=== PATIENT | male | born 1980 | race African-American/Black ===

== ENCOUNTER 2021-10-11 | Emergency (ER) | payer BC, OTHER ==
[~2021-10-11] VITALS: Ht 180.3 cm; Wt 99.8 kg
--- NOTE | 2021-10-11 00:50 | NUR ---
PATIENT BIBSELF C/O FEELING DEPRESSED WANTING VOL PSYCH ADMIT. PATIENT IS A/O X 3, RR EVEN AND UNLABORED, NO SOB NOTED. PATIENT TAKEN ER BED 18, WITH SECURITY TO WANDED. PATIENT BELONGINGS TAKEN AND PLACED LOCKER.
--- NOTE | 2021-10-11 00:52 | NUR ---
URINE COLLECTED AND SENT TO LAB
--- NOTE | 2021-10-11 00:52 | NUR ---
COVID SWAB COLLECTED SENT TO LAB
[2021-10-11 01:23] LABS: BASOPHILS # (AUTO) 0.1 K/uL (0.0-0.2); BASOPHILS % (AUTO) 0.9 % (0.0-2.0); EOSINOPHILS % (AUTO) 4.5 % (0.0-6.0); HEMATOCRIT 41 % (39-51); HEMOGLOBIN 13.6 g/dL (13.5-17.5); LYMPHOCYTES # (AUTO) 3.1 K/uL (0.8-4.8); MEAN CORPUSCULAR HGB CONC 34 g/dl (31.0-36.0); MEAN CORPUSCULAR VOLUME 90 fL (80-96); MONOCYTES # (AUTO) 0.8 K/uL (0.1-1.30); MONOCYTES % (AUTO) 9.9 % (2.0-12.0); NEUTROPHILS # (AUTO) 3.8 K/uL (1.8-8.9); NEUTROPHILS % (AUTO) 46.7 % (43.0-81.0); PLATELET COUNT (AUTO) 239 K/uL (150-450)
[2021-10-11 01:25] LABS: BILIRUBIN,URINE NEGATIVE (NEGATIVE); COLOR,URINE YELLOW (YELLOW); LEUKOCYTE ESTERASE ,URINE NEGATIVE (NEGATIVE); NITRITE, URINE NEGATIVE (NEGATIVE); PROTEIN,URINE NEGATIVE (NEGATIVE); UGLUCOSE NEGATIVE (NEGATIVE); UROBILINOGEN,URINE 0.2 EU/dL (0.2)
[2021-10-11 01:41] LABS: CALCIUM, SERUM 8.3 mg/dL (8.5-10.1); CARBON DIOXIDE 30 mmol/L (21-32); CHLORIDE 106 mmol/L (98-107); GLUCOSE 97 mg/dL (74-106); POTASSIUM 3.7 mmol/L (3.5-5.1); SODIUM SERUM 141 mmol/L (136-145); UREA NITROGEN, BLOOD 18 mg/dL (7-18)
[2021-10-11 01:46] LABS: ALANINE AMINOTRANSFERASE 34 U/L (12-78); ALBUMIN 3.6 g/dL (3.4-5.0); ALCOHOL, BLOOD < 3 mg/dL (0-0); ALKALINE PHOSPHATASE 74 U/L (46-116); ASPARTATE AMINOTRANSFERASE 27 U/L (15-37); BILIRUBIN,DIRECT 0.1 mg/dL (0.0-0.2); BILIRUBIN,TOTAL 0.4 mg/dL (0.2-1.0); TOTAL PROTEIN, SERUM 6.7 g/dL (6.4-8.2)
[2021-10-11 01:47] LABS: ACETAMINOPHEN 0 ug/ml (10-30)
--- NOTE | 2021-10-11 04:33 | NUR ---
FACESHEET AND CLINICALS FAXED TO [facility].
--- NOTE | 2021-10-11 07:38 | NUR ---
PER JANEL, ACCEPTED UNDER THE CARE OF DR SULLIVAN, TRANSPORT ETA 2280. NUMBER TO IVE REPORT [phone]
--- NOTE | 2021-10-11 07:44 | NUR ---
REPORT GIVEN TO KENN CABAN FOR STEPHANIA
--- NOTE | 2021-10-11 11:10 | NUR ---
Pt refusing to be transferred to a psychiatric facility states " I would [facility] go to [facility] where I have records at. I do not want to hurt myself/suicidal. Just need my records so I can follow up" Dr Melara made aware
[2021-10-11 11:36] VITALS: BP 119/64
--- NOTE | 2021-10-11 11:36 | NUR ---
Patient discharged to home in stable condition. Written and verbal after care instructions given. Patient verbalizes understanding of instruction.
== END 2021-10-11 11:36 | disposition home or self-care (01) ==
LOC: ER 00:06
DX: F32.A Depression, unspecified (principal); F10.10 Alcohol abuse, uncomplicated; Y90.0 Blood alcohol level of less than 20 mg/100 ml; Z59.00 Homelessness unspecified; Z20.822 Contact with and (suspected) exposure to COVID-19
CPT/HCPCS: 99283; 85025; 80048; 80076; 81003; 36415; 87426; 80143; 80320; 80307; C9803; G0480

== ENCOUNTER 2021-10-12 06:39 | Emergency (ER) | payer BC ==
[~2021-10-12] VITALS: Ht 180.3 cm; Wt 97.5 kg
--- NOTE | 2021-10-12 07:13 | NUR ---
BIBS WANTING VOLUNTARY PSYCH ADMISSION, PT STATED THAT HE HAS BEEN FEELING DEPRESSED AND UNABLE TO SLEEP, DENIES SI, HI. PT BELONGINGS OBTAINED AND PLACED IN A SEPERATE ROOM, CHANGED INTO A HSOPITAL GOWN. WARM BLNKAET PROVIDED FOR COMFORT. AWAITING MD ORDERS.
--- NOTE | 2021-10-12 07:28 | NUR ---
URINE COLLECTED AND SENT
--- NOTE | 2021-10-12 07:31 | NUR ---
COVID TEST COLLECTED AND SENT
[2021-10-12 07:51] LABS: BASOPHILS # (AUTO) 0.1 K/uL (0.0-0.2); BASOPHILS % (AUTO) 0.8 % (0.0-2.0); EOSINOPHILS % (AUTO) 3.2 % (0.0-6.0); HEMATOCRIT 41 % (39-51); HEMOGLOBIN 13.7 g/dL (13.5-17.5); LYMPHOCYTES # (AUTO) 2.9 K/uL (0.8-4.8); LYMPHOCYTES % (AUTO) 38.5 % (20.0-44.0); MEAN CORPUSCULAR HGB CONC 34 g/dl (31.0-36.0); MEAN CORPUSCULAR VOLUME 90 fL (80-96); MONOCYTES # (AUTO) 0.7 K/uL (0.1-1.30); MONOCYTES % (AUTO) 9.5 % (2.0-12.0); NEUTROPHILS # (AUTO) 3.6 K/uL (1.8-8.9); PLATELET COUNT (AUTO) 257 K/uL (150-450); RED BLOOD CELL COUNT(AUTO) 4.53 MIL/uL (4.5-6.0); WHITE BLOOD COUNT (AUTO) 7.6 K/uL (4.3-11.0)
[2021-10-12 08:04] LABS: ALANINE AMINOTRANSFERASE 35 U/L (12-78); ALBUMIN 3.7 g/dL (3.4-5.0); ALCOHOL, BLOOD < 3 mg/dL (0-0); ALKALINE PHOSPHATASE 76 U/L (46-116); ASPARTATE AMINOTRANSFERASE 26 U/L (15-37); BILIRUBIN,DIRECT 0.1 mg/dL (0.0-0.2); BILIRUBIN,TOTAL 0.4 mg/dL (0.2-1.0); CALCIUM, SERUM 8.4 mg/dL (8.5-10.1); CARBON DIOXIDE 32 mmol/L (21-32); CHLORIDE 103 mmol/L (98-107); CREATININE 1.1 mg/dL (0.6-1.3); GLUCOSE 97 mg/dL (74-106); POTASSIUM 3.8 mmol/L (3.5-5.1); SODIUM SERUM 138 mmol/L (136-145); TOTAL PROTEIN, SERUM 7.2 g/dL (6.4-8.2); UREA NITROGEN, BLOOD 24 mg/dL (7-18)
[2021-10-12 08:06] LABS: ACETAMINOPHEN 0 ug/ml (10-30)
[2021-10-12 08:07] LABS: BILIRUBIN,URINE NEGATIVE (NEGATIVE); COLOR,URINE YELLOW (YELLOW); LEUKOCYTE ESTERASE ,URINE NEGATIVE (NEGATIVE); NITRITE, URINE NEGATIVE (NEGATIVE); PROTEIN,URINE NEGATIVE (NEGATIVE); UGLUCOSE NEGATIVE (NEGATIVE); UROBILINOGEN,URINE 0.2 EU/dL (0.2)
--- NOTE | 2021-10-12 08:20 | NUR ---
MEDICALLY CLEARED. FACESHEET AND CLINICALS FAXED OVER TO [facility].
--- NOTE | 2021-10-12 08:24 | NUR ---
BREAKFAST PROVIDED, ASHLEY WELL
[2021-10-12 10:41] VITALS: BP 128/71
--- NOTE | 2021-10-12 11:48 | NUR ---
ADAM followed up with [facility] TEL:[phone] fax:[phone] admission to [facility]. ADAM was notified by Trina mccrary this pt. has been accepted at [facility] under the care of Dr. Fierro and flynn picked up at 12:30pm. ADAM notified Anthony godfrey.
--- NOTE | 2021-10-12 11:49 | NUR ---
ACCEPTED AT [facility] UNDER DR. DARNELL [phone] FOR REPORT.
--- NOTE | 2021-10-12 12:25 | NUR ---
REPORT Lian HOUGH FOR STEPHANIA
== END 2021-10-12 12:33 ==
LOC: ER 06:47
DX: F32.A Depression, unspecified (principal); F25.9 Schizoaffective disorder, unspecified; Z20.822 Contact with and (suspected) exposure to COVID-19; Z72.89 Other problems related to lifestyle; F15.90 Other stimulant use, unspecified, uncomplicated; F12.90 Cannabis use, unspecified, uncomplicated
CPT/HCPCS: 99285; 85025; 80048; 80076; 81003; 36415; 87426; 80143; 80320; 80307; C9803; G0480

== ENCOUNTER 2021-10-16 04:07 | Emergency (ER) | payer BC ==
[~2021-10-16] VITALS: Ht 180.3 cm; Wt 97.5 kg
--- NOTE | 2021-10-16 04:39 | NUR ---
PATIENT BIBSELF C/O WANTING VOL PSYCH ADMIT. PATIENT IS A/O X 4, RR EVEN AND UNLABORED NO SOB NOTED. PATIENT IS AFEBRILE. PATIENT AMBULATES WITH STEADY GAIT. SKIN IS INTACT. PATIENT TO ER BED 18. RN, EMT, SECURITY AT BEDSIDE FOR WANDING. BELONGINGS TAKEN AND PLACED IN LOCKER. WILL CONTINUE TO MONITOR.
--- NOTE | 2021-10-16 04:43 | NUR ---
DIDIERID COLLECTED SENT TO LAB
--- NOTE | 2021-10-16 04:43 | NUR ---
URINE COLLECTED SENT TO LAB
[2021-10-16 04:50] LABS: BASOPHILS # (AUTO) 0.1 K/uL (0.0-0.2); BASOPHILS % (AUTO) 0.7 % (0.0-2.0); EOSINOPHILS % (AUTO) 2.9 % (0.0-6.0); HEMATOCRIT 43 % (39-51); HEMOGLOBIN 14.6 g/dL (13.5-17.5); LYMPHOCYTES # (AUTO) 2.3 K/uL (0.8-4.8); LYMPHOCYTES % (AUTO) 21.9 % (20.0-44.0); MEAN CORPUSCULAR HGB CONC 34 g/dl (31.0-36.0); MEAN CORPUSCULAR VOLUME 91 fL (80-96); NEUTROPHILS # (AUTO) 6.6 K/uL (1.8-8.9); NEUTROPHILS % (AUTO) 64.5 % (43.0-81.0); PLATELET COUNT (AUTO) 265 K/uL (150-450); RED BLOOD CELL COUNT(AUTO) 4.77 MIL/uL (4.5-6.0); WHITE BLOOD COUNT (AUTO) 10.3 K/uL (4.3-11.0)
[2021-10-16 04:55] LABS: BILIRUBIN,URINE SMALL (NEGATIVE); COLOR,URINE YELLOW (YELLOW); LEUKOCYTE ESTERASE ,URINE NEGATIVE (NEGATIVE); NITRITE, URINE NEGATIVE (NEGATIVE); PROTEIN,URINE NEGATIVE (NEGATIVE); UGLUCOSE NEGATIVE (NEGATIVE); UROBILINOGEN,URINE 0.2 EU/dL (0.2)
[2021-10-16 05:04] LABS: ALANINE AMINOTRANSFERASE 35 U/L (12-78); ALBUMIN 4.2 g/dL (3.4-5.0); ALCOHOL, BLOOD < 3 mg/dL (0-0); ALKALINE PHOSPHATASE 85 U/L (46-116); ASPARTATE AMINOTRANSFERASE 23 U/L (15-37); BILIRUBIN,DIRECT 0.1 mg/dL (0.0-0.2); BILIRUBIN,TOTAL 0.5 mg/dL (0.2-1.0); CALCIUM, SERUM 8.5 mg/dL (8.5-10.1); CARBON DIOXIDE 33 mmol/L (21-32); CHLORIDE 101 mmol/L (98-107); GLUCOSE 91 mg/dL (74-106); POTASSIUM 3.2 mmol/L (3.5-5.1); SODIUM SERUM 139 mmol/L (136-145); TOTAL PROTEIN, SERUM 7.7 g/dL (6.4-8.2); UREA NITROGEN, BLOOD 25 mg/dL (7-18)
[2021-10-16 05:06] LABS: ACETAMINOPHEN 0 ug/ml (10-30)
--- NOTE | 2021-10-16 06:51 | NUR ---
CLINICALS FAXED TO [facility]
--- NOTE | 2021-10-16 07:48 | NUR ---
CALLED [facility]. THEY ARE REVIEWING CLINICALS.
--- NOTE | 2021-10-16 09:09 | NUR ---
ACCEPTED AT [facility] UNDER DR. SULLIVAN [phone] FOR REPORT. 1000 ETA FOR TRANSPORT.
--- NOTE | 2021-10-16 09:40 | NUR ---
Mike from . [facility] of here for bead picker. Discharged to psych facility in stable condition
[2021-10-16 10:03] VITALS: BP 132/75
== END 2021-10-16 10:03 ==
LOC: ER 04:09
DX: R45.851 Suicidal ideations (principal); F19.10 Other psychoactive substance abuse, uncomplicated; Z20.822 Contact with and (suspected) exposure to COVID-19; F25.9 Schizoaffective disorder, unspecified
CPT/HCPCS: 99285; 85025; 80048; 80076; 81003; 36415; 87426; 80143; 80320; 80307; C9803; G0480

== ENCOUNTER 2021-12-25 23:26 | Emergency (ER) | payer BC ==
[~2021-12-25] VITALS: Ht 180.3 cm; Wt 95.3 kg
--- NOTE | 2021-12-25 23:37 | NUR ---
CALLED TO HELADIO, NO ANSWER FROM WAITING ROOM
[2021-12-26 01:33] LABS: BILIRUBIN,URINE 1+ (NEGATIVE); COLOR,URINE YELLOW (YELLOW); LEUKOCYTE ESTERASE ,URINE NEGATIVE (NEGATIVE); NITRITE, URINE NEGATIVE (NEGATIVE); PROTEIN,URINE TRACE mg/dl (NEGATIVE); UGLUCOSE NEGATIVE (NEGATIVE); UROBILINOGEN,URINE 0.2 EU/dL (0.2)
--- NOTE | 2021-12-26 01:37 | NUR ---
LICENSED PRACTICAL NURSE AT PT'S BEDSIDE
[2021-12-26 01:43] LABS: BASOPHILS # (AUTO) 0.1 K/uL (0.0-0.2); BASOPHILS % (AUTO) 0.9 % (0.0-2.0); EOSINOPHILS % (AUTO) 2.5 % (0.0-6.0); HEMATOCRIT 40 % (39-51); HEMOGLOBIN 13.3 g/dL (13.5-17.5); LYMPHOCYTES # (AUTO) 2.1 K/uL (0.8-4.8); MEAN CORPUSCULAR HGB CONC 34 g/dl (31.0-36.0); MEAN CORPUSCULAR VOLUME 90 fL (80-96); MONOCYTES # (AUTO) 0.8 K/uL (0.1-1.30); MONOCYTES % (AUTO) 7.5 % (2.0-12.0); NEUTROPHILS # (AUTO) 7.7 K/uL (1.8-8.9); NEUTROPHILS % (AUTO) 70.1 % (43.0-81.0); PLATELET COUNT (AUTO) 285 K/uL (150-450)
[2021-12-26 02:04] LABS: CALCIUM, SERUM 8.8 mg/dL (8.5-10.1); CARBON DIOXIDE 33 mmol/L (21-32); CHLORIDE 101 mmol/L (98-107); GLUCOSE 92 mg/dL (74-106); POTASSIUM 3.6 mmol/L (3.5-5.1); SODIUM SERUM 137 mmol/L (136-145); UREA NITROGEN, BLOOD 22 mg/dL (7-18)
[2021-12-26 02:10] LABS: ACETAMINOPHEN 0 ug/ml (10-30); ALANINE AMINOTRANSFERASE 41 U/L (12-78); ALBUMIN 4.2 g/dL (3.4-5.0); ALCOHOL, BLOOD < 3 mg/dL (0-0); ALKALINE PHOSPHATASE 81 U/L (46-116); ASPARTATE AMINOTRANSFERASE 38 U/L (15-37); BILIRUBIN,DIRECT 0.1 mg/dL (0.0-0.2); BILIRUBIN,TOTAL 0.5 mg/dL (0.2-1.0)
[2021-12-26 07:43] LABS: BACTERIA,URINE Few /HPF (None Seen); RBC,URINE NONE SEEN /HPF (0-2); WBC,URINE 0-2 /HPF (0-3)
--- NOTE | 2021-12-26 09:18 | NUR ---
PT ACCEPTED TO [facility] UNDER DR DARNELL NUMBER FOR REPORT [phone]
--- NOTE | 2021-12-26 12:15 | NUR ---
Patient discharged to home in stable condition. Written and verbal after care instructions given. Patient verbalizes understanding of instruction.
[2021-12-26 12:17] VITALS: BP 142/77
== END 2021-12-26 12:18 | disposition home or self-care (01) ==
LOC: ER 23:42
DX: F25.9 Schizoaffective disorder, unspecified (principal); Z20.822 Contact with and (suspected) exposure to COVID-19; F12.10 Cannabis abuse, uncomplicated
CPT/HCPCS: 36415; 80048-TC; 80076-TC; 81001; 85025-TC; C9803; G0480

== ENCOUNTER 2021-12-27 09:05 | Emergency (ER) | payer BC, OTHER ==
[~2021-12-27] VITALS: Ht 180.3 cm; Wt 98.9 kg
[2021-12-27] MEDS: QUETIAPINE FUMARATE 25 MG TABLET PO STA (09:22)
[2021-12-27] MEDS ORDERED: QUETIAPINE FUMARATE 25 MG TABLET ONE (09:27)
--- NOTE | 2021-12-27 09:29 | NUR ---
Disorganized thoughts, wants to be medically cleared to go to [facility]
[2021-12-27 09:30] VITALS: BP 148/75
[2021-12-27 09:46] LABS: BASOPHILS # (AUTO) 0.1 K/uL (0.0-0.2); BASOPHILS % (AUTO) 0.9 % (0.0-2.0); EOSINOPHILS % (AUTO) 0.6 % (0.0-6.0); HEMATOCRIT 42 % (39-51); HEMOGLOBIN 13.9 g/dL (13.5-17.5); LYMPHOCYTES # (AUTO) 2.8 K/uL (0.8-4.8); LYMPHOCYTES % (AUTO) 22.8 % (20.0-44.0); MEAN CORPUSCULAR HGB CONC 33 g/dl (31.0-36.0); MEAN CORPUSCULAR VOLUME 90 fL (80-96); MONOCYTES # (AUTO) 1.2 K/uL (0.1-1.30); MONOCYTES % (AUTO) 9.5 % (2.0-12.0); NEUTROPHILS % (AUTO) 66.2 % (43.0-81.0); PLATELET COUNT (AUTO) 332 K/uL (150-450); RED BLOOD CELL COUNT(AUTO) 4.65 MIL/uL (4.5-6.0); WHITE BLOOD COUNT (AUTO) 12.1 K/uL (4.3-11.0)
[2021-12-27 09:50] LABS: BILIRUBIN,URINE 1+ (NEGATIVE); COLOR,URINE YELLOW (YELLOW); LEUKOCYTE ESTERASE ,URINE NEGATIVE (NEGATIVE); NITRITE, URINE NEGATIVE (NEGATIVE); PROTEIN,URINE 1+ mg/dl (NEGATIVE); UGLUCOSE NEGATIVE (NEGATIVE)
[2021-12-27 09:55] LABS: CALCIUM, SERUM 9.2 mg/dL (8.5-10.1); CARBON DIOXIDE 32 mmol/L (21-32); CHLORIDE 102 mmol/L (98-107); CREATININE 1.1 mg/dL (0.6-1.3); GLUCOSE 91 mg/dL (74-106); POTASSIUM 3.1 mmol/L (3.5-5.1); SODIUM SERUM 140 mmol/L (136-145); UREA NITROGEN, BLOOD 27 mg/dL (7-18)
[2021-12-27 10:02] LABS: ALANINE AMINOTRANSFERASE 42 U/L (12-78); ALBUMIN 4.4 g/dL (3.4-5.0); ALCOHOL, BLOOD < 3 mg/dL (0-0); ALKALINE PHOSPHATASE 87 U/L (46-116); ASPARTATE AMINOTRANSFERASE 46 U/L (15-37); BILIRUBIN,DIRECT 0.1 mg/dL (0.0-0.2); BILIRUBIN,TOTAL 0.4 mg/dL (0.2-1.0); TOTAL PROTEIN, SERUM 8.5 g/dL (6.4-8.2)
[2021-12-27 10:07] LABS: BACTERIA,URINE Few /HPF (None Seen); WBC,URINE 0-2 /HPF (0-3)
--- NOTE | 2021-12-27 10:52 | NUR ---
FAXED CLINICALS TO [facility].
[2021-12-27 10:56] LABS: ACETAMINOPHEN 0 ug/ml (10-30)
[2021-12-27] MEDS ORDERED: POTASSIUM CHLORIDE 20 MEQ TAB.PRT.SR PO ONE (13:52)
[2021-12-27] MEDS: POTASSIUM CHLORIDE 20 MEQ TAB.PRT.SR PO ONE (13:54)
--- NOTE | 2021-12-27 19:22 | NUR ---
PT IS AGGREVATE BECAUSE HE HAS BEEN HERE "FOR 24 HOURS." PT STATED THAT HE WANTS TO LEAVE, PT DENIES ANY SUICIDAL IDEATION. BELONGING GIVEN BACK TO PT, PT LEFT FACILITY WLAKING.
== END 2021-12-27 19:45 | disposition left against medical advice (07) ==
LOC: ER 09:08
DX: F29 Unspecified psychosis not due to a substance or known physiological condition (principal); F12.19 Cannabis abuse with unspecified cannabis-induced disorder; Z20.822 Contact with and (suspected) exposure to COVID-19; F25.9 Schizoaffective disorder, unspecified
CPT/HCPCS: 36415; 80048-TC; 80076-TC; 81001; 85025-TC; C9803; G0480

== ENCOUNTER 2022-01-09 12:16 | Emergency (ER) | payer BC, OTHER ==
[~2022-01-09] VITALS: Ht 180.3 cm; Wt 99.8 kg
--- NOTE | 2022-01-09 12:37 | NUR ---
URINE COLLECTED AND COVID SWAB DONE AND SENT TO LAB
--- NOTE | 2022-01-09 12:37 | NUR ---
SECURITY CALLED FOR WANDING
--- NOTE | 2022-01-09 13:29 | NUR ---
PHLEB AT BEDSIDE FOR BLOOD DRAW
[2022-01-09 13:38] LABS: BASOPHILS # (AUTO) 0.1 K/uL (0.0-0.2); BASOPHILS % (AUTO) 0.6 % (0.0-2.0); EOSINOPHILS % (AUTO) 0.5 % (0.0-6.0); HEMATOCRIT 42 % (39-51); LYMPHOCYTES # (AUTO) 1.4 K/uL (0.8-4.8); LYMPHOCYTES % (AUTO) 9.2 % (20.0-44.0); MEAN CORPUSCULAR HGB CONC 33 g/dl (31.0-36.0); MEAN CORPUSCULAR VOLUME 90 fL (80-96); MONOCYTES # (AUTO) 1.6 K/uL (0.1-1.30); MONOCYTES % (AUTO) 10.5 % (2.0-12.0); NEUTROPHILS # (AUTO) 11.9 K/uL (1.8-8.9); NEUTROPHILS % (AUTO) 79.2 % (43.0-81.0); PLATELET COUNT (AUTO) 292 K/uL (150-450); RED BLOOD CELL COUNT(AUTO) 4.68 MIL/uL (4.5-6.0)
[2022-01-09 14:02] LABS: ALANINE AMINOTRANSFERASE 31 U/L (12-78); ALBUMIN 3.8 g/dL (3.4-5.0); ALCOHOL, BLOOD < 3 mg/dL (0-0); ALKALINE PHOSPHATASE 78 U/L (46-116); ASPARTATE AMINOTRANSFERASE 20 U/L (15-37); BILIRUBIN,DIRECT 0.1 mg/dL (0.0-0.2); BILIRUBIN,TOTAL 0.4 mg/dL (0.2-1.0); CALCIUM, SERUM 9.3 mg/dL (8.5-10.1); CARBON DIOXIDE 32 mmol/L (21-32); CHLORIDE 107 mmol/L (98-107); CREATININE 1.5 mg/dL (0.6-1.3); GLUCOSE 138 mg/dL (74-106); POTASSIUM 3.9 mmol/L (3.5-5.1); SODIUM SERUM 134 mmol/L (136-145); UREA NITROGEN, BLOOD 25 mg/dL (7-18)
[2022-01-09 14:03] LABS: ACETAMINOPHEN < 10 ug/ml (10-30)
--- NOTE | 2022-01-09 14:47 | NUR ---
URINE SAMPLE COLLECTED AND SENT TO LAB
[2022-01-09 15:07] LABS: BILIRUBIN,URINE 1+ (NEGATIVE); COLOR,URINE YELLOW (YELLOW); LEUKOCYTE ESTERASE ,URINE NEGATIVE (NEGATIVE); NITRITE, URINE NEGATIVE (NEGATIVE); PROTEIN,URINE 2+ mg/dl (NEGATIVE); UGLUCOSE NEGATIVE (NEGATIVE); UROBILINOGEN,URINE 0.2 EU/dL (0.2)
[2022-01-09 15:27] LABS: RBC,URINE 0-2 /HPF (0-2); WBC,URINE 0-2 /HPF (0-3)
[2022-01-09 15:28] LABS: BACTERIA,URINE Few /HPF (None Seen); SQUAMOUS EPITHELIAL CELL,UR Few /HPF (None Seen)
[2022-01-09 15:29] LABS: CALCIUM OXALATE CRYSTALS,UR Few /HPF (None Seen)
[2022-01-09 15:30] LABS: SPERM,URINE Few /HPF (None Seen)
--- NOTE | 2022-01-09 17:32 | NUR ---
FAXED CLINICALS TO [facility].
--- NOTE | 2022-01-09 18:42 | NUR ---
PT ACC[facility]PTED [facility] UNDER DR. DARNELL PLEASE CALL [phone] FOR REPORT.
--- NOTE | 2022-01-09 21:10 | NUR ---
[facility] CALLED FOR TRANSPORT ETA 45-60MINS
--- NOTE | 2022-01-09 22:07 | NUR ---
PT PICKED UP BY [facility] FOR TRANSPORT TO [facility]. REPORT GIVEN TO [facility].
[2022-01-09 22:10] VITALS: BP 140/74
== END 2022-01-09 22:11 ==
LOC: ER 12:24
DX: F23 Brief psychotic disorder (principal); R45.851 Suicidal ideations; F25.9 Schizoaffective disorder, unspecified; E86.0 Dehydration; R82.4 Acetonuria; D72.829 Elevated white blood cell count, unspecified; Z20.822 Contact with and (suspected) exposure to COVID-19
CPT/HCPCS: 99285; 85025; 80048; 80076; 81001; 36415; 87426; 80143; 80320; 80307; C9803; G0480

== ENCOUNTER 2022-01-14 02:47 | Emergency (ER) | payer BC, OTHER ==
[~2022-01-14] VITALS: Ht 188 cm; Wt 88.5 kg
--- NOTE | 2022-01-14 04:46 | NUR ---
PATIENT BIBSELF WANTS VOL PSYCH ADMIT. PATIENT A/O X 3, RR EVEN AND UNLABORED, NO SOB NOTED. PATIENT TAKEN TO ER BED 18, BELONGINGS TAKEN AND PATIENT PLACED IN HOSPITAL GOWN.
[2022-01-14] MEDS ORDERED: OLANZAPINE 5 MG TABLET ONE (04:58)
[2022-01-14] MEDS ORDERED: OLANZAPINE 5 MG TABLET PO ONE (05:00)
[2022-01-14 05:17] LABS: BASOPHILS # (AUTO) 0.1 K/uL (0.0-0.2); BASOPHILS % (AUTO) 0.8 % (0.0-2.0); EOSINOPHILS % (AUTO) 4.7 % (0.0-6.0); HEMATOCRIT 41 % (39-51); HEMOGLOBIN 13.6 g/dL (13.5-17.5); LYMPHOCYTES # (AUTO) 2.1 K/uL (0.8-4.8); LYMPHOCYTES % (AUTO) 28.5 % (20.0-44.0); MEAN CORPUSCULAR HGB CONC 34 g/dl (31.0-36.0); MEAN CORPUSCULAR VOLUME 89 fL (80-96); MONOCYTES # (AUTO) 0.8 K/uL (0.1-1.30); MONOCYTES % (AUTO) 10.6 % (2.0-12.0); NEUTROPHILS # (AUTO) 4.1 K/uL (1.8-8.9); NEUTROPHILS % (AUTO) 55.4 % (43.0-81.0); PLATELET COUNT (AUTO) 291 K/uL (150-450); RED BLOOD CELL COUNT(AUTO) 4.54 MIL/uL (4.5-6.0); WHITE BLOOD COUNT (AUTO) 7.3 K/uL (4.3-11.0)
[2022-01-14 05:20] LABS: BILIRUBIN,URINE 1+ (NEGATIVE); COLOR,URINE YELLOW (YELLOW); LEUKOCYTE ESTERASE ,URINE NEGATIVE (NEGATIVE); PROTEIN,URINE 1+ mg/dl (NEGATIVE); UGLUCOSE NEGATIVE (NEGATIVE)
[2022-01-14 05:23] LABS: NITRITE, URINE NEGATIVE (NEGATIVE)
[2022-01-14 05:24] LABS: BACTERIA,URINE None seen /HPF (None Seen); SQUAMOUS EPITHELIAL CELL,UR None Seen /HPF (None Seen); WBC,URINE 0-2 /HPF (0-3)
[2022-01-14 05:32] LABS: CALCIUM, SERUM 9.4 mg/dL (8.5-10.1); CARBON DIOXIDE 35 mmol/L (21-32); CHLORIDE 98 mmol/L (98-107); GLUCOSE 91 mg/dL (74-106); POTASSIUM 3.5 mmol/L (3.5-5.1); SODIUM SERUM 135 mmol/L (136-145); UREA NITROGEN, BLOOD 20 mg/dL (7-18)
[2022-01-14 05:38] LABS: ALANINE AMINOTRANSFERASE 36 U/L (12-78); ALBUMIN 3.8 g/dL (3.4-5.0); ALCOHOL, BLOOD < 3 mg/dL (0-0); ALKALINE PHOSPHATASE 81 U/L (46-116); ASPARTATE AMINOTRANSFERASE 30 U/L (15-37); BILIRUBIN,DIRECT 0.1 mg/dL (0.0-0.2); BILIRUBIN,TOTAL 0.5 mg/dL (0.2-1.0); TOTAL PROTEIN, SERUM 8.2 g/dL (6.4-8.2)
[2022-01-14 05:41] LABS: ACETAMINOPHEN < 2 ug/ml (10-30)
--- NOTE | 2022-01-14 06:15 | NUR ---
FACESHEET AND CLINICALS FAXED TO [facility].
--- NOTE | 2022-01-14 08:30 | NUR ---
PT UNDER REVIEW BY HOSSEIN PEREIRA AT [facility].
--- NOTE | 2022-01-14 09:03 | NUR ---
PT ACCEPTED TO [facility] UNDER THE CARE OF DR. DARNELL. TRANSPORTATION ETA 930. GIVE REPORT TO MYRNA [phone].
[2022-01-14 09:36] VITALS: BP 145/80
--- NOTE | 2022-01-14 09:36 | NUR ---
METAL CNC OPERATOR BY [facility]SP[facility]. STABLE CONDITION.
== END 2022-01-14 09:37 ==
LOC: ER 02:48
DX: R45.851 Suicidal ideations (principal); F12.10 Cannabis abuse, uncomplicated; Z20.822 Contact with and (suspected) exposure to COVID-19; F25.9 Schizoaffective disorder, unspecified
CPT/HCPCS: 99285; 85025; 80048; 80076; 81001; 36415; 87426; 80143; 80320; 80307; C9803; G0480

== ENCOUNTER 2022-01-27 05:05 | Emergency (ER) | payer BC, OTHER ==
[~2022-01-27] VITALS: Ht 180.3 cm; Wt 95.3 kg
--- NOTE | 2022-01-27 05:50 | NUR ---
called for triage. no answer
--- NOTE | 2022-01-27 07:00 | NUR ---
PRESENTED TO THE ER FOR C/O DEPRESSION, PTSD AND MENTAL BREAK DOWN. REQUESTING VOLUNTARY PSYCH ADMISSION TO [facility]. PT AMBULATORY WITH STEADY GAITS TO THE BATHROOM. URINE SAMPLE OBTAINED. COVID SWAB DONE. BELOGINGS WERE TAKEN AWAY AND PT WAS PLACED ON SI PRECAUTION. VSS.
--- NOTE | 2022-01-27 07:38 | NUR ---
COVID SPECIMEN ALREADY COLLECTED AND RECEIVED BY LAB
[2022-01-27 07:58] LABS: BILIRUBIN,URINE NEGATIVE (NEGATIVE); COLOR,URINE YELLOW (YELLOW); LEUKOCYTE ESTERASE ,URINE NEGATIVE (NEGATIVE); NITRITE, URINE NEGATIVE (NEGATIVE); PH,URINE 6.5 (5.0-8.0); PROTEIN,URINE NEGATIVE (NEGATIVE); UGLUCOSE NEGATIVE (NEGATIVE); UROBILINOGEN,URINE 0.2 EU/dL (0.2)
[2022-01-27 08:06] LABS: BASOPHILS # (AUTO) 0.1 K/uL (0.0-0.2); BASOPHILS % (AUTO) 0.9 % (0.0-2.0); CALCIUM, SERUM 8.9 mg/dL (8.5-10.1); CARBON DIOXIDE 29 mmol/L (21-32); CHLORIDE 102 mmol/L (98-107); CREATININE 0.9 mg/dL (0.6-1.3); GLUCOSE 101 mg/dL (74-106); HEMATOCRIT 42 % (39-51); HEMOGLOBIN 13.7 g/dL (13.5-17.5); LYMPHOCYTES # (AUTO) 2.4 K/uL (0.8-4.8); LYMPHOCYTES % (AUTO) 26.9 % (20.0-44.0); MEAN CORPUSCULAR HGB CONC 33 g/dl (31.0-36.0); MEAN CORPUSCULAR VOLUME 92 fL (80-96); MONOCYTES % (AUTO) 10.8 % (2.0-12.0); NEUTROPHILS # (AUTO) 5.2 K/uL (1.8-8.9); NEUTROPHILS % (AUTO) 58.4 % (43.0-81.0); PLATELET COUNT (AUTO) 297 K/uL (150-450); POTASSIUM 3.8 mmol/L (3.5-5.1); RED BLOOD CELL COUNT(AUTO) 4.54 MIL/uL (4.5-6.0); SODIUM SERUM 138 mmol/L (136-145); UREA NITROGEN, BLOOD 20 mg/dL (7-18)
[2022-01-27 08:13] LABS: ACETAMINOPHEN 0 ug/ml (10-30); ALANINE AMINOTRANSFERASE 26 U/L (12-78); ALBUMIN 3.9 g/dL (3.4-5.0); ALCOHOL, BLOOD < 3 mg/dL (0-0); ALKALINE PHOSPHATASE 78 U/L (46-116); ASPARTATE AMINOTRANSFERASE 25 U/L (15-37); BILIRUBIN,DIRECT 0.1 mg/dL (0.0-0.2); BILIRUBIN,TOTAL 0.4 mg/dL (0.2-1.0); TOTAL PROTEIN, SERUM 7.6 g/dL (6.4-8.2)
--- NOTE | 2022-01-27 09:45 | NUR ---
FAXED CLINICALS TO [facility].
--- NOTE | 2022-01-27 10:00 | NUR ---
Financial Accountant Consult SW faxed clinicals to [facility] TEL:[phone] fax:[phone] for for voluntary psychiatric treatment at [facility] [[facility] [place] [address] FAX:[phone]].
--- NOTE | 2022-01-27 11:15 | NUR ---
REFAXED CLINICALS TO [facility].
--- NOTE | 2022-01-27 13:56 | NUR ---
per roberto, clinically-cleared but needs auth for insurance; will call back when authorized
--- NOTE | 2022-01-27 14:17 | NUR ---
CALLED [facility] [phone] AWAITING AUTH FOR INSURANCE & WILL CALL US BACK PER EUGENIA.
--- NOTE | 2022-01-27 14:36 | NUR ---
PT ACCEPTED AT [facility] UNDER DR. DARNELL NUMBER FOR REPORT: [phone] ETA 1500
--- NOTE | 2022-01-27 14:47 | NUR ---
REPORT GIVEN TO [facility] CHARGE NURSE. PT GOING TO UNIT 2.
--- NOTE | 2022-01-27 15:19 | NUR ---
Patient discharged to [facility] in stable condition accompanied by transporter. Written and verbal after care instructions given. Patient verbalizes understanding of instruction.
[2022-01-27 15:20] VITALS: BP 137/85
== END 2022-01-27 15:21 ==
LOC: ER 05:05
DX: R45.851 Suicidal ideations (principal); F32.A Depression, unspecified; Z20.822 Contact with and (suspected) exposure to COVID-19; Z59.00 Homelessness unspecified; F25.9 Schizoaffective disorder, unspecified; F43.10 Post-traumatic stress disorder, unspecified; R03.0 Elevated blood-pressure reading, without diagnosis of hypertension; F41.9 Anxiety disorder, unspecified
CPT/HCPCS: 99285; 85025; 80048; 80076; 81003; 36415; 87426; 80143; 80320; 80307; C9803; G0480

== ENCOUNTER 2022-02-01 06:29 | Emergency (ER) | payer BC, OTHER ==
--- NOTE | 2022-02-01 06:32 | NUR ---
PATIENT CALLED TO TRIAGE, NOT IN WAITING ROOM,
== END 2022-02-01 06:33 | disposition left against medical advice (07) ==
LOC: ER 06:29
DX: Z53.21 Procedure and treatment not carried out due to patient leaving prior to being seen by health care provider (principal)

== ENCOUNTER 2022-02-05 04:37 | Emergency (ER) | payer BC, OTHER ==
[~2022-02-05] VITALS: Ht 180.3 cm; Wt 95.3 kg
--- NOTE | 2022-02-05 06:35 | NUR ---
DR. THOMAS MARTINEZ WITH PT FOR EVAL
[2022-02-05 06:39] VITALS: BP 148/75
--- NOTE | 2022-02-05 06:39 | NUR ---
BIBS FOR C/O PTSD -SI/HI. A/OX 4. TOLERATING R/A WELL WITH NO RESP DISTRESS. RR EVEN AND NON LABORED. AMBULATORY WITH STEADY GAIT. SAFETY MEASURES IN PLACE.
--- NOTE | 2022-02-05 06:43 | NUR ---
PATIENT WAS D/C'D IN STABLE CONDITION.. PT DID NOT WANT TO WAIT FOR HIS DISCHARGE INSTUCTIONS
== END 2022-02-05 07:05 | disposition home or self-care (01) ==
LOC: ER 04:39
DX: F43.10 Post-traumatic stress disorder, unspecified (principal); F20.9 Schizophrenia, unspecified; F17.200 Nicotine dependence, unspecified, uncomplicated; Z59.00 Homelessness unspecified; X58.XXXA Exposure to other specified factors, initial encounter; Y93.89 Activity, other specified; Y92.89 Other specified places as the place of occurrence of the external cause; Y99.8 Other external cause status

== ENCOUNTER 2022-02-07 18:39 | Emergency (ER) | payer BC, OTHER ==
[~2022-02-07] VITALS: Ht 180.3 cm; Wt 88.5 kg
[2022-02-07 20:24] LABS: BASOPHILS # (AUTO) 0.1 K/uL (0.0-0.2); EOSINOPHILS % (AUTO) 4.2 % (0.0-6.0); HEMATOCRIT 44 % (39-51); HEMOGLOBIN 14.2 g/dL (13.5-17.5); LYMPHOCYTES # (AUTO) 3.2 K/uL (0.8-4.8); LYMPHOCYTES % (AUTO) 34.5 % (20.0-44.0); MEAN CORPUSCULAR HGB CONC 33 g/dl (31.0-36.0); MEAN CORPUSCULAR VOLUME 91 fL (80-96); MONOCYTES # (AUTO) 0.9 K/uL (0.1-1.30); MONOCYTES % (AUTO) 9.4 % (2.0-12.0); NEUTROPHILS # (AUTO) 4.7 K/uL (1.8-8.9); NEUTROPHILS % (AUTO) 50.9 % (43.0-81.0); PLATELET COUNT (AUTO) 292 K/uL (150-450); RED BLOOD CELL COUNT(AUTO) 4.81 MIL/uL (4.5-6.0); WHITE BLOOD COUNT (AUTO) 9.2 K/uL (4.3-11.0)
[2022-02-07 20:42] LABS: ALANINE AMINOTRANSFERASE 27 U/L (12-78); ALCOHOL, BLOOD < 3 mg/dL (0-0); ALKALINE PHOSPHATASE 80 U/L (46-116); ASPARTATE AMINOTRANSFERASE 23 U/L (15-37); BILIRUBIN,DIRECT 0.1 mg/dL (0.0-0.2); BILIRUBIN,TOTAL 0.4 mg/dL (0.2-1.0); CALCIUM, SERUM 8.5 mg/dL (8.5-10.1); CARBON DIOXIDE 31 mmol/L (21-32); CHLORIDE 102 mmol/L (98-107); GLUCOSE 112 mg/dL (74-106); POTASSIUM 3.6 mmol/L (3.5-5.1); SODIUM SERUM 137 mmol/L (136-145); TOTAL PROTEIN, SERUM 7.6 g/dL (6.4-8.2); UREA NITROGEN, BLOOD 20 mg/dL (7-18)
[2022-02-07 20:48] LABS: ACETAMINOPHEN 0 ug/ml (10-30)
--- NOTE | 2022-02-07 20:55 | NUR ---
BIBS FOR VOLUNTARY ADMISSION TO [facility]. DENIES ANY SI OR HI. PT IS ALERT AND ORIENTED. RR EVEN AND NONLABORED. BELONGINGS REMOVED AND AND SECURED IN LOCKER. CONNECTED TO MONITOR. SITTER WITHIN SIGHT. AWAITING MD ALFARO
--- NOTE | 2022-02-07 20:57 | NUR ---
COVID SWAB OBTAINED
[2022-02-07 21:37] LABS: BILIRUBIN,URINE 1+ (NEGATIVE); COLOR,URINE YELLOW (YELLOW); LEUKOCYTE ESTERASE ,URINE NEGATIVE (NEGATIVE); NITRITE, URINE NEGATIVE (NEGATIVE); PROTEIN,URINE NEGATIVE (NEGATIVE); UGLUCOSE NEGATIVE (NEGATIVE)
[2022-02-07 21:38] LABS: BACTERIA,URINE None seen /HPF (None Seen); SQUAMOUS EPITHELIAL CELL,UR 0-2 /HPF (None Seen); WBC,URINE 0-2 /HPF (0-3)
[2022-02-07 21:39] LABS: RBC,URINE 0-2 /HPF (0-2)
--- NOTE | 2022-02-08 00:15 | NUR ---
faxed clinicals to [facility]
--- NOTE | 2022-02-08 06:12 | NUR ---
CALLED [facility] TO F/U. PER CLINTON SMITHITING FOR ADMITTING TO APPLY FOR AUTHORIZATION FROM INSURANCE IN AM.
--- NOTE | 2022-02-08 07:30 | NUR ---
BREAKFAST TRAY PROVIDED TO PT, ASHLEY WELL.
--- NOTE | 2022-02-08 09:01 | NUR ---
SPOKE WITH KRISTIE AT [facility], STILL AWAITING AUTH FOR ADMISSION.
--- NOTE | 2022-02-08 10:21 | NUR ---
[facility] ACCEPTING MD: DR MONIQUE # FOR REPORT: [phone] TRANSPO ETA 20-30min
[2022-02-08 10:32] VITALS: BP 137/69
--- NOTE | 2022-02-08 10:33 | NUR ---
CALLED FOR REPORT. NO ANSWER, LEFT VM
--- NOTE | 2022-02-08 10:40 | NUR ---
PROVIDED W BREAKFAST TRAY
--- NOTE | 2022-02-08 10:55 | NUR ---
PATIENT PICKED UP BY [facility] TRANSPORT PERSON IN STABLE CONDITION. ALL BELONGINGS RETURNED TO PATIENT. CLINICALS PROVIDED TO BE SUBMITTED TO [facility].
== END 2022-02-08 10:59 ==
LOC: ER 18:39
DX: F32.A Depression, unspecified (principal); F43.10 Post-traumatic stress disorder, unspecified; Z59.02 Unsheltered homelessness; Z20.822 Contact with and (suspected) exposure to COVID-19; Z91.14 Patient's other noncompliance with medication regimen; F25.9 Schizoaffective disorder, unspecified; R82.5 Elevated urine levels of drugs, medicaments and biological substances
CPT/HCPCS: 99284; 85025; 80048; 80076; 81001; 36415; 87426; 80143; 80320; 80307; C9803; G0480

== ENCOUNTER 2022-02-22 21:47 | Emergency (ER) | payer MEDICARE, OTHER ==
[~2022-02-22] VITALS: Ht 180.3 cm; Wt 95.7 kg
--- NOTE | 2022-02-22 22:25 | NUR ---
BIBS FOR C/O MENTAL BREAK DOWN REQUESTING VOLUNTARY PSYCH ADMISSION DENIED SI/HI. PT A/OX3. TOLERATING R/A WELL WITH NO RESP DISRESS. PT AMBULATORY WITH STEADY GAIT. PT CHANGED IN GOWN, BELONGINGS COLLECTED IN LOCKER AND WANDED BY SECURITY. SAFETY MEASURES IN PLACE.
--- NOTE | 2022-02-23 | NUR ---
URINE COLLECTED AND SENT TO LAB
--- NOTE | 2022-02-23 00:01 | NUR ---
STREET DEPARTMENT DISPATCHER AT PT'S BEDSIDE
[2022-02-23 00:15] LABS: BASOPHILS % (AUTO) 0.5 % (0.0-2.0); EOSINOPHILS % (AUTO) 3.3 % (0.0-6.0); HEMATOCRIT 39 % (39-51); HEMOGLOBIN 12.6 g/dL (13.5-17.5); LYMPHOCYTES # (AUTO) 2.8 K/uL (0.8-4.8); LYMPHOCYTES % (AUTO) 29.8 % (20.0-44.0); MEAN CORPUSCULAR HGB CONC 33 g/dl (31.0-36.0); MEAN CORPUSCULAR VOLUME 91 fL (80-96); MONOCYTES # (AUTO) 0.9 K/uL (0.1-1.30); MONOCYTES % (AUTO) 9.6 % (2.0-12.0); NEUTROPHILS # (AUTO) 5.3 K/uL (1.8-8.9); NEUTROPHILS % (AUTO) 56.8 % (43.0-81.0); PLATELET COUNT (AUTO) 250 K/uL (150-450); RED BLOOD CELL COUNT(AUTO) 4.25 MIL/uL (4.5-6.0); WHITE BLOOD COUNT (AUTO) 9.3 K/uL (4.3-11.0)
[2022-02-23 00:22] LABS: BILIRUBIN,URINE NEGATIVE (NEGATIVE); COLOR,URINE YELLOW (YELLOW); LEUKOCYTE ESTERASE ,URINE NEGATIVE (NEGATIVE); NITRITE, URINE NEGATIVE (NEGATIVE); PH,URINE 6.5 (5.0-8.0); PROTEIN,URINE TRACE mg/dl (NEGATIVE); UGLUCOSE NEGATIVE (NEGATIVE)
[2022-02-23 00:24] LABS: CALCIUM, SERUM 8.1 mg/dL (8.5-10.1); CARBON DIOXIDE 29 mmol/L (21-32); CHLORIDE 104 mmol/L (98-107); GLUCOSE 105 mg/dL (74-106); POTASSIUM 3.2 mmol/L (3.5-5.1); SODIUM SERUM 140 mmol/L (136-145); UREA NITROGEN, BLOOD 23 mg/dL (7-18)
[2022-02-23 00:27] LABS: BACTERIA,URINE None seen /HPF (None Seen); RBC,URINE 0-2 /HPF (0-2); SQUAMOUS EPITHELIAL CELL,UR Rare /HPF (None Seen); WBC,URINE 0-2 /HPF (0-3)
[2022-02-23 00:31] LABS: ALANINE AMINOTRANSFERASE 22 U/L (12-78); ALBUMIN 3.5 g/dL (3.4-5.0); ALCOHOL, BLOOD < 3 mg/dL (0-0); ALKALINE PHOSPHATASE 81 U/L (46-116); ASPARTATE AMINOTRANSFERASE 23 U/L (15-37); BILIRUBIN,DIRECT 0.1 mg/dL (0.0-0.2); BILIRUBIN,TOTAL 0.2 mg/dL (0.2-1.0); TOTAL PROTEIN, SERUM 6.8 g/dL (6.4-8.2)
[2022-02-23 00:34] LABS: ACETAMINOPHEN 0 ug/ml (10-30)
--- NOTE | 2022-02-23 01:09 | NUR ---
FACESHEET AND CLINICALS FAXED TO [facility].
--- NOTE | 2022-02-23 04:00 | NUR ---
PER [facility] PT ACCEPTED [facility] SULLIVAN CALL FOR REPORT [phone]
--- NOTE | 2022-02-23 04:03 | NUR ---
REPORT GIVEN TO INTERMODAL CUSTOMER SERVICE AUDIE
--- NOTE | 2022-02-23 05:05 | NUR ---
[facility] ETA TO [facility] IS 1100 AM
--- NOTE | 2022-02-23 08:16 | NUR ---
PT STATED THAT HE WANTS TO LEAVE THE HOSPITAL AND REFUSED TO GO TO [facility]. PT A/O X3 AND ABLE TO MAKE NEEDS KNOWN, CURRENTLY NOT ON A PSYCH HOLD, DENIES SI/HI AT THIS TIME. DR. CLINE MADE AWARE.
[2022-02-23 08:26] VITALS: BP 135/70
== END 2022-02-23 08:33 | disposition home or self-care (01) ==
LOC: ER 21:54
DX: F32.A Depression, unspecified (principal); Z59.00 Homelessness unspecified; F25.9 Schizoaffective disorder, unspecified; F43.10 Post-traumatic stress disorder, unspecified; Z20.822 Contact with and (suspected) exposure to COVID-19; I10 Essential (primary) hypertension
CPT/HCPCS: 36415; 80048-TC; 80076-TC; 81001; 85025-TC; C9803; G0480

== ENCOUNTER 2022-02-24 21:05 | Emergency (ER) | payer MEDICARE, OTHER ==
[~2022-02-24] VITALS: Ht 180.3 cm; Wt 95.7 kg
--- NOTE | 2022-02-24 22:03 | NUR ---
JIA. TO ER BED 18. CAME IN [facility] MEDICAL CLEARANCE FOR VOLUTARY ADMISSION TO [facility] FOR FEELING DISTRESS BECUASE OF HIS PTSD. PT DENIES SUICIDAL NOR HOMICIDAL IDEATION. WAS AT THE BEDSIDE FOR EVAL. PT WAS PLACED IN GOWN AND BELONGINS TO LOCKER FOR SAFETY PRECAUTION.
--- NOTE | 2022-02-24 22:04 | NUR ---
URINE AND COVID SWAB COLLECTED AND SENT TO LAB
[2022-02-24 22:19] LABS: BASOPHILS # (AUTO) 0.1 K/uL (0.0-0.2); BASOPHILS % (AUTO) 0.6 % (0.0-2.0); EOSINOPHILS % (AUTO) 4.8 % (0.0-6.0); HEMATOCRIT 40 % (39-51); HEMOGLOBIN 13.1 g/dL (13.5-17.5); LYMPHOCYTES # (AUTO) 2.7 K/uL (0.8-4.8); LYMPHOCYTES % (AUTO) 33.2 % (20.0-44.0); MEAN CORPUSCULAR HGB CONC 33 g/dl (31.0-36.0); MEAN CORPUSCULAR VOLUME 90 fL (80-96); MONOCYTES # (AUTO) 0.7 K/uL (0.1-1.30); MONOCYTES % (AUTO) 8.8 % (2.0-12.0); NEUTROPHILS # (AUTO) 4.3 K/uL (1.8-8.9); NEUTROPHILS % (AUTO) 52.6 % (43.0-81.0); PLATELET COUNT (AUTO) 263 K/uL (150-450); RED BLOOD CELL COUNT(AUTO) 4.44 MIL/uL (4.5-6.0); WHITE BLOOD COUNT (AUTO) 8.2 K/uL (4.3-11.0)
[2022-02-24 23:01] LABS: CALCIUM, SERUM 8.5 mg/dL (8.5-10.1); CARBON DIOXIDE 30 mmol/L (21-32); CHLORIDE 103 mmol/L (98-107); CREATININE 0.9 mg/dL (0.6-1.3); GLUCOSE 104 mg/dL (74-106); POTASSIUM 3.5 mmol/L (3.5-5.1); SODIUM SERUM 136 mmol/L (136-145); UREA NITROGEN, BLOOD 17 mg/dL (7-18)
[2022-02-24 23:08] LABS: BILIRUBIN,URINE NEGATIVE (NEGATIVE); COLOR,URINE YELLOW (YELLOW); LEUKOCYTE ESTERASE ,URINE NEGATIVE (NEGATIVE); NITRITE, URINE NEGATIVE (NEGATIVE); PH,URINE 6.5 (5.0-8.0); PROTEIN,URINE NEGATIVE (NEGATIVE); UGLUCOSE NEGATIVE (NEGATIVE); UROBILINOGEN,URINE 0.2 EU/dL (0.2)
[2022-02-24 23:15] LABS: ALANINE AMINOTRANSFERASE 23 U/L (12-78); ALBUMIN 3.6 g/dL (3.4-5.0); ALCOHOL, BLOOD < 3 mg/dL (0-0); ALKALINE PHOSPHATASE 71 U/L (46-116); ASPARTATE AMINOTRANSFERASE 25 U/L (15-37); BILIRUBIN,DIRECT 0.1 mg/dL (0.0-0.2); BILIRUBIN,TOTAL 0.3 mg/dL (0.2-1.0)
[2022-02-24 23:50] LABS: ACETAMINOPHEN < 10 ug/ml (10-30)
--- NOTE | 2022-02-25 08:45 | NUR ---
FAXED CLINICALS TO [facility].
--- NOTE | 2022-02-25 09:21 | NUR ---
Accepted to: [facility] [place] [facility] Accepted by: Nagi Amaya Report to: [phone] Transport to be Arranged ETA [id number]
--- NOTE | 2022-02-25 09:25 | NUR ---
[facility] CALLED FOR TRANSPORT ASKED FOR ETA OF [phone]
--- NOTE | 2022-02-25 10:04 | NUR ---
CALLED ADAM HUNG LEFT VM
--- NOTE | 2022-02-25 11:45 | NUR ---
Patient discharged to [facility] in stable condition accompanied by transporter. Written and verbal after care instructions given. Patient verbalizes understanding of instruction.
--- NOTE | 2022-02-25 11:49 | NUR ---
SS note: Pt. requested to speak to SW about PTSD treatment programs. SW provided pt. mental heatlh resources and homeless resources and recommended that pt. request to be referred to PTSD treatment programs when he arrives at [facility] for voluntary psych tx. as they can assist him with that. Pt. was agreeable to plan and stated he would speak to CM to request this upon arrival. Noted SW provided the following referrals: Mental Health resources provided: [facility] [address] [place], [place] [address] ; [facility] [address] [facility] [address], [place], [place] [id number] ; [facility] [address] [facility] [place], [place] [id number] ; [facility] [address] [place], [place] [address] Healthcare Clinics: [facility] [address] [facility], [address] [place]. [place] ; [facility] [address] [facility] [address] [place] [address]; [facility] [address] [place] [address] [phone] Counseling--Outpatient [facility] [address] [facility] [address] [facility], [address] [place], [place] [address] (Specializes in in-depth psychotherapy for emotional distress: anxiety, depression, interpersonal conflicts, life transitions, childhood abuse) [facility] [address] [place], [place] [phone] (Assist with solving problem marital difficulties, separation & divorce, aging parents, & grief, chronic & terminal illness) [facility] [address] [place] [address] (Deal with loss & grief, anxiety, marital difficulties) Homebound/Mental Health Services [address] [facility], [address] [place], [place] [address] (Provide in-home mental services to people who are incapable of leaving their homes) [facility] Elder[facility] Senior Service[facility] [address] [place] [address] [facility] [address] [place] [address] PSYCHIATRIC OUTPATIENT SERVICES [facility] Partial Hospitalization and Intensive Outpatient Program (Managed Care and [place] Only)[address] veWellstar [facility] [phone] [facility] Partial Hospitalization and Outpatient [id number] [place], [place] [phone] [facility] Center [id number] [facility] [address] [place], [place] [phone] [facility] Partial Hospitalization and Outpatient [id number] EmeliCitizens Medical Center ShivamRIG[place], [phone] Year-round shelters: [facility] [address] [place], [place] [address] ; [facility] [address] [place] [address]; [facility] [id number] [facility] [id number] Hygiene: [facility]: [address] jean claudeSaint John'S [facility] ; [facility] [address] [facility] ; [facility] [address] [facility] [place] . Food Resources: [place] [employer] [facility] at [facility]- [address] [place]; Meet Each Need with Dignity ([facility]) [address] [facility] Hospital[facility] [place]; [facility] Food [facility] [address] [facility]; [facility] [address] [facility]. Substance Abuse resources provided included: [facility] Substance Abuse Self-Helpline (SASH) ; [facility]HELP [address] [facility]. [place] [address] ; [facility] [address] [place] [address] ; [facility] Rehabilitation Program [address] [facility] [place] [address] ; [facility] [address] [facility] [id number] ; [facility] [address] Langley [facility] [phone] ; [facility] [address] [facility] [phone] ; [facility] Substance Abuse Helpline(SAS)[facility] ; [facility] ; [facility]; Luisana [facility] [place]; [facility] [place]; I-ADARP [facility]; [facility] [place]; [facility] [place]; [facility]; [facility] [employer] [place]; Alcoholics Anonymous -SFV; Xh-Noir-Ducvkzs ; Marijuana Anonymous -SFV; Narcotics Anonymous www.na.org;
--- NOTE | 2022-02-25 11:50 | NUR ---
all belongings returned to pt
[2022-02-25 12:22] VITALS: BP 125/80
== END 2022-02-25 12:23 ==
LOC: ER 21:07
DX: F43.10 Post-traumatic stress disorder, unspecified (principal); X58.XXXA Exposure to other specified factors, initial encounter; Y92.89 Other specified places as the place of occurrence of the external cause; F32.A Depression, unspecified; Z59.00 Homelessness unspecified; Z20.822 Contact with and (suspected) exposure to COVID-19; F19.10 Other psychoactive substance abuse, uncomplicated; Z91.14 Patient's other noncompliance with medication regimen; F25.9 Schizoaffective disorder, unspecified; I10 Essential (primary) hypertension
CPT/HCPCS: 36415; 80048-TC; 80076-TC; 85025-TC; C9803; G0480

== ENCOUNTER 2022-03-05 06:53 | Emergency (ER) | payer MEDICARE, OTHER ==
--- NOTE | 2022-03-05 07:19 | NUR ---
CALLED TO TRIAGE,NO ANSWER
--- NOTE | 2022-03-05 07:45 | NUR ---
CALLED TO TRIAGE,NO ANSWER
--- NOTE | 2022-03-05 08:00 | NUR ---
CALLED TO TRIAGE,NO ANSWER
== END 2022-03-05 08:01 | disposition left against medical advice (07) ==
LOC: ER 06:56
DX: Z53.21 Procedure and treatment not carried out due to patient leaving prior to being seen by health care provider (principal)

== ENCOUNTER 2022-03-05 22:22 | Emergency (ER) | payer MEDICARE, OTHER ==
--- NOTE | 2022-03-06 00:14 | NUR ---
CALLED TO TRIAGE NO RESPONSE
--- NOTE | 2022-03-06 00:37 | NUR ---
CALLED TO TRIAGE NO RESPONSE
== END 2022-03-06 01:00 | disposition left against medical advice (07) ==
LOC: ER 22:45
DX: Z53.21 Procedure and treatment not carried out due to patient leaving prior to being seen by health care provider (principal)

== ENCOUNTER 2022-03-06 02:41 | Emergency (ER) | payer MEDICARE, OTHER ==
--- NOTE | 2022-03-06 04:17 | NUR ---
CALLED TO BE TRIAGED; NO RESPONSE
--- NOTE | 2022-03-06 04:37 | NUR ---
CALLED TO BE TRIAGED; NO RESPONSE
--- NOTE | 2022-03-06 05:19 | NUR ---
CALLED TO BE TRIAGED; NO RESPONSE
--- NOTE | 2022-03-06 05:20 | NUR ---
Patient left without being triaged. Dr Neil ER Physician aware.
== END 2022-03-06 05:20 | disposition left against medical advice (07) ==
LOC: ER 02:48
DX: Z53.21 Procedure and treatment not carried out due to patient leaving prior to being seen by health care provider (principal)

== ENCOUNTER 2022-03-07 04:44 | Emergency (ER) | payer MEDICARE, OTHER ==
[~2022-03-07] VITALS: Ht 175.3 cm; Wt 79.4 kg
--- NOTE | 2022-03-07 05:34 | NUR ---
COVID SWAB DONE AND SENT TO LAB
--- NOTE | 2022-03-07 05:34 | NUR ---
BELONGINGS TAKEN AND PLACED IN LOCKER.
--- NOTE | 2022-03-07 05:34 | NUR ---
URINE COLLECTED AND SENT TO LAB
[2022-03-07 06:40] LABS: BASOPHILS % (AUTO) 0.7 % (0.0-2.0); EOSINOPHILS % (AUTO) 3.4 % (0.0-6.0); HEMATOCRIT 41 % (39-51); HEMOGLOBIN 13.5 g/dL (13.5-17.5); LYMPHOCYTES % (AUTO) 26.9 % (20.0-44.0); MEAN CORPUSCULAR HGB CONC 33 g/dl (31.0-36.0); MEAN CORPUSCULAR VOLUME 90 fL (80-96); MONOCYTES # (AUTO) 0.7 K/uL (0.1-1.30); MONOCYTES % (AUTO) 9.6 % (2.0-12.0); NEUTROPHILS # (AUTO) 4.5 K/uL (1.8-8.9); NEUTROPHILS % (AUTO) 59.4 % (43.0-81.0); PLATELET COUNT (AUTO) 297 K/uL (150-450); WHITE BLOOD COUNT (AUTO) 7.6 K/uL (4.3-11.0)
[2022-03-07 06:53] LABS: BILIRUBIN,URINE NEGATIVE (NEGATIVE); COLOR,URINE YELLOW (YELLOW); LEUKOCYTE ESTERASE ,URINE NEGATIVE (NEGATIVE); NITRITE, URINE NEGATIVE (NEGATIVE); PH,URINE 6.5 (5.0-8.0); PROTEIN,URINE NEGATIVE (NEGATIVE); UGLUCOSE NEGATIVE (NEGATIVE)
[2022-03-07 06:58] LABS: ALANINE AMINOTRANSFERASE 23 U/L (12-78); ALBUMIN 3.7 g/dL (3.4-5.0); ALCOHOL, BLOOD < 3 mg/dL (0-0); ALKALINE PHOSPHATASE 78 U/L (46-116); ASPARTATE AMINOTRANSFERASE 23 U/L (15-37); BILIRUBIN,DIRECT 0.1 mg/dL (0.0-0.2); BILIRUBIN,TOTAL 0.2 mg/dL (0.2-1.0); CALCIUM, SERUM 8.4 mg/dL (8.5-10.1); CARBON DIOXIDE 28 mmol/L (21-32); CHLORIDE 105 mmol/L (98-107); CREATININE 0.9 mg/dL (0.6-1.3); GLUCOSE 105 mg/dL (74-106); POTASSIUM 3.7 mmol/L (3.5-5.1); SODIUM SERUM 143 mmol/L (136-145); TOTAL PROTEIN, SERUM 7.1 g/dL (6.4-8.2); UREA NITROGEN, BLOOD 19 mg/dL (7-18)
[2022-03-07 07:28] LABS: BACTERIA,URINE Few /HPF (None Seen); RBC,URINE NONE SEEN /HPF (0-2); SQUAMOUS EPITHELIAL CELL,UR Rare /HPF (None Seen); WBC,URINE NONE SEEN /HPF (0-3)
[2022-03-07 08:41] LABS: ACETAMINOPHEN < 10 ug/ml (10-30)
--- NOTE | 2022-03-07 11:30 | NUR ---
PT WAS INFORMED NO AVAILABLE BED AT [facility]. WAS OFFERED TO GO TO [place] BUT PATIENT DECLINED. STATES HE WILL LEAVE. NO LONGER SUICIDAL. AND IS REQUESTING TO BE DISCHARGED.
--- NOTE | 2022-03-07 11:33 | NUR ---
PT VERBALIZED THAT HE DOES NOT WANT TO STAY AND WANTS TO LEAVE THE HOSPITAL. PT NOT ON A PSYCH HOLD AND MEDICALLY-CLEARED. PT A/O X4 AND ABLE TO MAKE NEEDS KNOWN. DENIES SI/HI AT THIS TIME. DR MONTANO MADE AWARE.
--- NOTE | 2022-03-07 11:45 | NUR ---
Patient discharged to home/homeless in stable condition. Written and verbal after care instructions given. Patient verbalizes understanding of instruction. Refused homeless waiver/resources at this time.
[2022-03-07 12:35] VITALS: BP 137/87
== END 2022-03-07 12:36 | disposition home or self-care (01) ==
LOC: ER 04:55
DX: F32.A Depression, unspecified (principal); F12.10 Cannabis abuse, uncomplicated; F25.9 Schizoaffective disorder, unspecified; F43.10 Post-traumatic stress disorder, unspecified; I10 Essential (primary) hypertension; Z59.01 Sheltered homelessness; Z20.822 Contact with and (suspected) exposure to COVID-19
CPT/HCPCS: 36415; 80048-TC; 80076-TC; 81001; 85025-TC; C9803; G0480

== ENCOUNTER 2022-12-17 04:18 | Emergency (ER) | payer BC, MEDICAID | END 2022-12-17 05:40 | disposition left against medical advice (07) | LOC: ER 04:46 | DX: Z02.9 Encounter for administrative examinations, unspecified (principal); Z53.21 Procedure and treatment not carried out due to patient leaving prior to being seen by health care provider ==